=== PATIENT | male | born 1980 | race Caucasian/White ===

== ENCOUNTER → 2017-11-28 | Outpatient (CLI) | payer OTHER ==
--- NOTE | ~2017-11-28 | 2DMMODE ---
Formerly [facility] [place] [address] 2 D/M-MODE ECHOCARDIOGRAM Name: DARREL MARTINEZ Room #: REG CL [facility]#: [id number] Admission: 11/28/17 Attend Phys: Stephen Vazquez Discharge: Date of : 80 Date of Service: 11/28/17 0958 Report #: [id number] THIS REPORT FOR: //name// APPROVED REPORT Study performed: 11/28/2017 09:08:30 EXAM: Comprehensive 2D, Doppler, and color-flow Echocardiogram Patient Location: Out-Patient Status: routine BSA: 2.41 HR: 61 bpm BP: 138/89 mmHg Rhythm: NSR/OCCASIONAL PVCs Other Information Study Quality: Excellent Indications Short of breath, chest pressure. 2D Dimensions RVDd: 37.84 mm IVSd: 11.11 (7-11mm) LVOT Diam: 21.46 (18-24mm) LVDd: 50.58 mm PWd: 11.05 (7-11mm) Ascending Ao: 28.71 (22-36mm) LVDs: 34.89 (25-40mm) Aortic Root: 33.75 mm Volumes Left Atrial Volume (Systole) Single Plane 4CH: 58.74 mL Single Plane 2CH: 60.98 mL LA ESV Index: 27.00 mL/m2 Aortic Valve AoV Peak Carlos.: 1.11 m/s AO Peak Gr.: 4.94 mmHg LVOT Max P.87 mmHg LVOT Max V: 0.85 m/s PUMA Vmax: 2.76 cm2 Mitral Valve E/A Ratio: 1.9 MV Decel. Time: 175.20 ms MV E Max Carlos.: 0.68 m/s Formerly [facility] [address] [place] [address] 2 D/M-MODE ECHOCARDIOGRAM Name: DARREL MARTINEZ Room #: REG [facility]#: [id number] Admission: 11/28/17 Attend Phys: Stephen Vazquez Discharge: Date of : 80 Date of Service: 11/28/17 0958 Report #: [id number] MV A Carlos.: 0.35 m/s MV PHT: 50.81 ms IVRT: 92.27 ms Pulmonary Valve PV Peak Carlos.: 1.39 m/s PV Peak Gr.: 7.69 mmHg Pulmonary Vein P Vein S: 0.34 m/s P Vein D: 0.37 m/s P Vein S/D Ratio: 0.92 Tricuspid Valve TR Peak Cralos.: 2.04 m/s RAP Estimate: 5.00 mmHg TR Peak Gr.: 16.59 mmHg PA Pressure: 22.00 mmHg Left Ventricle The left ventricle is normal size. There is normal LV segmental wall motion. There is normal left ventricular wall thickness. Left ventricular systolic function is normal. LVEF is 55-60%. The left ventricular diastolic function is normal. Right Ventricle The right ventricle is normal size. The right ventricular systolic function is normal. Atria The left atrium size is normal. The right atrium size is normal. Aortic Valve The aortic valve is normal in structure. No aortic regurgitation is present. There is no aortic valvular stenosis. Mitral Valve The mitral valve is normal in structure. Trace mitral regurgitation. No evidence of mitral valve stenosis. Tricuspid Valve The tricuspid valve is normal in structure. Trace tricuspid regurgitation. Estimated PAP is 20-25mmHg. Pulmonic Valve The pulmonary valve is normal in structure. Mild pulmonic regurgitation. Formerly [facility] [address] [place] [address] 2 D/M-MODE ECHOCARDIOGRAM Name: DARREL MARTINEZ Room #: REG CL [facility].#: [id number] Admission: 11/28/17 Attend Phys: Stephen Vazquez Discharge: Date of : 80 Date of Service: 11/28/17 0958 Report #: [id number] Great Vessels The aortic root is normal in size. The ascending aorta is normal in size. IVC is normal in size and collapses >50% with inspiration. Pericardium There is no pericardial effusion. <Conclusion> The left ventricle is normal size. LVEF is 55-60%. The aortic valve is normal in structure. The mitral valve is normal in structure. Trace mitral regurgitation. The tricuspid valve is normal in structure. Trace tricuspid regurgitation. Estimated PAP is 20-25mmHg. The pulmonary valve is normal in structure. Mild pulmonic regurgitation. There is no pericardial effusion. <ELECTRONICALLY SIGNED> By: Stephen Suazo MD 11/28/17957 7 7 Stephen Suazo MD /INF
== END ==
LOC: NUC 07:02
DX: I37.1 Nonrheumatic pulmonary valve insufficiency (principal)